=== PATIENT | female | born 1960 | race Caucasian/White ===

== ENCOUNTER 2016-10-07 15:51 | Inpatient (IN) | payer BC ==
[~2016-10-07] VITALS: Ht 154.9 cm; Wt 86.6 kg
[~2016-10-07 15:51] MED LIST: ACETAMINOPHEN325 MG PO; AMBIEN5 MG PO; ASPIR 8181 MG PO; BACTROBAN15 GM TOP; CEPHALEXIN500 MG PO; COREG6.25 MG PO; CULTURELLE1 EACH PO; HYDROCODON-ACE1 EAC6 PO; KEFLEX500 MG PO; LASIX20 MG PO; LYRICA300 MG PO; PHENERGAN25 M1 PO; PROTONIX40 MG PO; REQUIP0.5 MG PO; ULTRAM50 MG PO; ZOLOFT25 MG PO
== END 2016-10-11 13:37 | disposition home or self-care (01) | DRG 392 ==
LOC: ER 15:51 → MED 22:00
PROVIDERS: ADMIT Internal Medicine
PROC: 0DB68ZX Excision of Stomach, Via Natural or Artificial Opening Endoscopic, Diagnostic (ICD-10-PCS; principal; 2016-10-08)
PROC: 0DBK8ZX Excision of Ascending Colon, Via Natural or Artificial Opening Endoscopic, Diagnostic (ICD-10-PCS; 2016-10-10)
PROC: 0DBL8ZX Excision of Transverse Colon, Via Natural or Artificial Opening Endoscopic, Diagnostic (ICD-10-PCS; 2016-10-10)
DX: A09 Infectious gastroenteritis and colitis, unspecified (principal); E87.6 Hypokalemia; K29.70 Gastritis, unspecified, without bleeding; K44.9 Diaphragmatic hernia without obstruction or gangrene; I10 Essential (primary) hypertension; F41.9 Anxiety disorder, unspecified; F32.9 Major depressive disorder, single episode, unspecified; G89.4 Chronic pain syndrome; E66.01 Morbid (severe) obesity due to excess calories; Z68.36 Body mass index [BMI] 36.0-36.9, adult; Z98.84 Bariatric surgery status; I89.0 Lymphedema, not elsewhere classified; D72.829 Elevated white blood cell count, unspecified; G47.33 Obstructive sleep apnea (adult) (pediatric); K21.9 Gastro-esophageal reflux disease without esophagitis; G25.81 Restless legs syndrome; Z86.010 Personal history of colon polyps; Z79.82 Long term (current) use of aspirin; Z79.899 Other long term (current) drug therapy; Z90.710 Acquired absence of both cervix and uterus; Z90.49 Acquired absence of other specified parts of digestive tract; Z82.49 Family history of ischemic heart disease and other diseases of the circulatory system
CPT/HCPCS: 36415; 87507; 96361; 96374; 96375; 96376; J1650; J1885; J2550; J2704; Q9967